=== PATIENT | male | born 1930 | race Caucasian/White ===

== ENCOUNTER 2016-07-18 11:46 | Inpatient (IN) | payer MEDICARE, OTHER ==
[~2016-07-18] VITALS: Ht 172.7 cm; Wt 54.6 kg
[2016-07-18 12:44] LABS: MEAN CORPUSCULAR HGB CONC 31.9 g/dL (31.0-37.0); WHITE BLOOD COUNT 6.73 10^3uL (4.0-11.0)
[2016-07-18 12:47] LABS: BILIRUBIN,URINE Negative (Negative); CLARITY,URINE Clear; COLOR,URINE Yellow; GLUCOSE, URINE (UA) Negative (Negative); LEUKOCYTE ESTERASE ,URINE Negative (Negative); PH,URINE 5.5 (5.0 - 8.0); UROBILINOGEN,URINE 0.2 mg/dL (0.2-1.0)
[2016-07-18 12:57] LABS: ALBUMIN 2.8 g/dL (3.4-5.0); ANION GAP 14.2 MEQ/L (3-15); CALCULATED IONIZED CALCIUM 4.7 mg/dL (3.8-4.6); TOTAL PROTEIN 4.9 g/dL (6.4-8.5)
[2016-07-18 13:08] LABS: MEAN CORPUSCULAR HEMOGLOBIN 31.3 PG (26.0-34.0); MEAN CORPUSCULAR VOLUME 98 FL (80-100)
[2016-07-18 13:10] LABS: PLATELET COUNT 24 10^3uL (150-450)
[2016-07-18 13:11] LABS: TOTAL CELLS COUNTED 0
[2016-07-18 13:24] LABS: URINE CENTRIFUGED VOLUME <10mL Unspun
[2016-07-18 14:43] LABS: ANISOCYTOSIS MODERATE; RBC MORPH SEE REFERENCE (NORMAL)
--- NOTE | 2016-07-18 14:51 | NUR ---
HAS BEEN UP TO THE TOILET IN ROOM TO URINATE. MINIMAL ASSIST WITH LEGS GETTING IN AND OUT OF BED. PT TOLERATED WELL. PT VERBALIZED, "I JUST WANT TO GO BACK HOME".
--- NOTE | 2016-07-18 15:32 | NUR ---
Dr. Linton on phone with Dr. Izaguirre
--- NOTE | 2016-07-18 15:57 | NUR ---
Report given to Ivette WALLER. Questions answered by this RN.
--- NOTE | 2016-07-18 16:10 | NUR ---
JOSELITO Kapoor to take patient to room 309 via wheelchair. Care relinquished.
--- NOTE | 2016-07-18 16:10 | NUR ---
Pt admitted to 309 via w/c accompanied by Roland Morris CNA and family. Skin warm, dry, intact. 1+ pitting edema noted in bilateral ankles. Resprs nonlabored, even on RA. Pt denies SOA, pain, weakness, dizziness. States he is no more SOA than is his baseline. Pt falls asleep frequently during assessment. No IV access at this time.
[2016-07-18 16:15] VITALS: BP 134/63
[2016-07-18] MEDS ORDERED: FUROSEMIDE 100 MG/10 ML (LASIX) VIAL IV ONE (17:30)
[2016-07-18] MEDS ORDERED: ACETAMINOPHEN 325 MG TAB (TYLENOL) PO PRN (17:35)
[2016-07-18] MEDS ORDERED: ONDANSETRON 2 MG/ML (Z0FRAN) 2 ML VIAL IV PRN (17:35)
[2016-07-18] MEDS ORDERED: CALCIUM CARBONATE CHEWABLE 300 MG (TUMS) TABLET PO PRN (17:35)
--- NOTE | 2016-07-18 18:45 | NUR ---
Right PAC accessed using 22g 3/4inch waters needle, using sterile technique. Blood return noted. Flushes without difficulty.
--- NOTE | 2016-07-18 19:29 | NUR ---
Pt resting in bed at this time. PAC hep locked after admin of lasix. Pt encouraged to call for assistance when needing to use RR. Skin warm, dry, intact. Resprs nonlabored, even on RA. Family at bedside. Pt denies needs.
[2016-07-18 19:57] VITALS: BP 144/64
--- NOTE | 2016-07-18 20:20 | NUR ---
Patient states that he would like a giraldo as offered to him by Dr. Izaguirre d/t lasix administration. Order obtained. 14F coude catheter placed under sterile procedure, patient tolerates well. No needs at this time. Will continue to monitor.
[2016-07-18 23:53] VITALS: BP 138/57
[2016-07-19 01:38] LABS: BILIRUBIN,URINE Negative (Negative); CLARITY,URINE Clear; COLOR,URINE Yellow; GLUCOSE, URINE (UA) Negative (Negative); LEUKOCYTE ESTERASE ,URINE Negative (Negative); UROBILINOGEN,URINE 0.2 mg/dL (0.2-1.0)
[2016-07-19 01:47] LABS: URINE CENTRIFUGED VOLUME 12 mL
[2016-07-19 04:12] VITALS: BP 136/50
[2016-07-19] MEDS ORDERED: SODIUM CHLORIDE FLUSH 10 ML ONE ×2 (05:38→09:44)
[2016-07-19 05:56] LABS: BASOPHILS % (AUTO) 0 % (0-2); EOSINOPHILS % (AUTO) 1 % (0-4); LYMPHOCYTES # (AUTO) 0.2 X10^3; MEAN CORPUSCULAR HGB CONC 32.5 g/dL (31.0-37.0); MEAN PLATELET VOLUME 10.9 FL (6.0-9.5); MONOCYTES # (AUTO) 0.3 X10^3; MONOCYTES % (AUTO) 9 % (3-11); NEUTROPHILS # (AUTO) 3.4 X10^3; NEUTROPHILS % (AUTO) 84 % (51-67); WHITE BLOOD COUNT 4.02 10^3uL (4.0-11.0)
[2016-07-19 06:18] LABS: ALBUMIN 2.5 g/dL (3.4-5.0); ANION GAP 11.6 MEQ/L (3-15); CALCULATED IONIZED CALCIUM 4.8 mg/dL (3.8-4.6); TOTAL PROTEIN 4.6 g/dL (6.4-8.5)
[2016-07-19 06:34] LABS: MEAN CORPUSCULAR HEMOGLOBIN 31.8 PG (26.0-34.0); MEAN CORPUSCULAR VOLUME 98 FL (80-100)
[2016-07-19 06:35] LABS: PLATELET COUNT 28 10^3uL (150-450)
--- NOTE | 2016-07-19 06:44 | NUR ---
Patient confused throughout night, attempting to get out of bed throughout night, saying "I need to take a leak!" Reminded frequently about catheter. TABS and Pressure alarm on patient at all times. No needs at this time.
--- NOTE | 2016-07-19 07:15 | NUR ---
Patient sets off tabs alarm during shift report. He is again confused by his catheter and feels he needs to get up and urinate. Attempted to reorient him but this did not help yet. Assisted patient to the chair with the pressure alarm in the seat.
[2016-07-19 08:15] VITALS: BP 116/64
--- NOTE | 2016-07-19 08:18 | NUR ---
Medication reconciliation updated and completed using [facility]'s MAR.
[2016-07-19] MEDS: FUROSEMIDE 100 MG/10 ML (LASIX) VIAL IV SCH ×2 (09:46→16:34)
[2016-07-19 12:00] VITALS: BP 135/49
--- NOTE | 2016-07-19 14:00 | NUR ---
Urine output= 1850cc's for day shift.
[2016-07-19 16:17] VITALS: BP 110/60
[2016-07-19] MEDS: SODIUM CHLORIDE FLUSH 10 ML SYR IV SCH (16:34)
[2016-07-19] MEDS ORDERED: ACETAMINOPHEN 325 MG TAB (TYLENOL) PO PRN (16:50)
[2016-07-19] MEDS ORDERED: meTOprolol TARTRATE 25 MG (LOPRESSOR) TABLET ONE (18:07)
[2016-07-19] MEDS: PANTOPRAZOLE 40 MG (PROTONIX) TAB PO SCH (18:39)
[2016-07-19] MEDS: LOSARTAN 50 MG (COZAAR) TABLET PO SCH (18:39)
[2016-07-19] MEDS: meTOprolol TARTRATE 50 MG (LOPRESSOR) TABLET PO SCH (18:39)
[2016-07-19] MEDS: ALLOPURINOL 300 MG (ZYLOPRIM) TAB PO SCH (18:40)
[2016-07-19] MEDS: THYROID 60 MG PO SCH (18:41)
--- NOTE | 2016-07-19 19:30 | NUR ---
Patient's orientation was much better during the day then it was at night. He is also better mentally when family members are present as they were most of the day. Tabs alarm, bed alarm, and pressure alarm applied for safety. No SOA noted today. Edema is improved in bilateral legs and arms.
[2016-07-19 19:40] VITALS: BP 123/47
--- NOTE | 2016-07-19 20:17 | NUR ---
Patient resting in the recliner with legs elevated. Is alert and oriented at this time. Skin warm and dry. Color pink. Ledt remains sl swollen. Teixeira drains truman urine, large amount in catheter bag. No concerns voiced at this time.
[2016-07-19] MEDS: SIMVASTATIN 5 MG PO SCH (21:00)
[2016-07-19 23:37] VITALS: BP 120/47
--- NOTE | 2016-07-20 | NUR ---
Resting in bed. Tabs and bed alarm on. Patient alert and confused, yet pleasant. No discomforts voiced. Left hand elevated on pillow. Remains ecchymotic looking and swollen. Patient denies pain in hand or arm. Teixeira drains light red tinged urine.
[2016-07-20 04:30] VITALS: BP 122/53
[2016-07-20] MEDS ORDERED: LEVOTHYROXINE 150 MCG (LEVOTHROID) TABLET ONE (05:44)
[2016-07-20] MEDS: THYROID 60 MG PO SCH (05:58)
[2016-07-20] MEDS: PANTOPRAZOLE 40 MG (PROTONIX) TAB PO SCH (06:00)
--- NOTE | 2016-07-20 06:30 | NUR ---
Patient rested well tonight. Tried to get out of bed twice, but when he was re-oriented he would rest back in bed. Confused to place and time. Cooperative. Fluids encouraged. Taken when offered. Tabs alarm on for safety and bed alarm on also.
[2016-07-20 06:32] LABS: BASOPHILS % (AUTO) 0 % (0-2); EOSINOPHILS # (AUTO) 0.1 10^3uL; EOSINOPHILS % (AUTO) 1 % (0-4); LYMPHOCYTES # (AUTO) 0.6 X10^3; MEAN CORPUSCULAR HEMOGLOBIN 31.3 PG (26.0-34.0); MEAN CORPUSCULAR HGB CONC 32.5 g/dL (31.0-37.0); MEAN CORPUSCULAR VOLUME 96 FL (80-100); MEAN PLATELET VOLUME 11.4 FL (6.0-9.5); MONOCYTES # (AUTO) 0.5 X10^3; MONOCYTES % (AUTO) 11 % (3-11); NEUTROPHILS # (AUTO) 3.3 X10^3; NEUTROPHILS % (AUTO) 73 % (51-67); PLATELET COUNT 31 10^3uL (150-450); WHITE BLOOD COUNT 4.48 10^3uL (4.0-11.0)
[2016-07-20 06:50] LABS: ALBUMIN 2.3 g/dL (3.4-5.0); ANION GAP 12.1 MEQ/L (3-15); MAGNESIUM* 1.7 mg/dL (1.6-2.3); PHOSPHORUS 4.8 mg/dL (2.4-4.9); TOTAL PROTEIN 4.2 g/dL (6.4-8.5)
[2016-07-20 09:12] VITALS: BP 125/60
[2016-07-20] MEDS: meTOprolol TARTRATE 50 MG (LOPRESSOR) TABLET PO SCH ×2 (09:15→17:38)
[2016-07-20] MEDS: LOSARTAN 50 MG (COZAAR) TABLET PO SCH (09:15)
[2016-07-20] MEDS: ALLOPURINOL 300 MG (ZYLOPRIM) TAB PO SCH (09:15)
[2016-07-20] MEDS: FUROSEMIDE 100 MG/10 ML (LASIX) VIAL IV SCH ×2 (09:16→17:39)
--- NOTE | 2016-07-20 09:26 | NUR ---
NUTRITION ASSESSMENT Level 1 Patient: Jorje Bella Age/Sex: 86/M Date Screened: 07-20-16 Weight: 118.5#/53.9 kg Height: 68 inches Primary Diagnosis: fluid overload, dyspnea Diet Order: regular Relevant labs: potassium 3.4, glucose 88 Food allergies: N Nutrition Assessment Criteria Age over 80: 4 points Body Mass Index (BMI) under 19: 6 points Admission Screening Indicates Risk? 6 points Moderate/High Risk Diagnosis: N TPN or PPN: N NPO or clear liquid diet: N Serum Glucose <70 or >180: N Hgb A1c >6.7: N/A Total: 16 points Risk Screen: __ Patient at low nutritional risk based on available data; reevaluate in 5-7 days __ Patient at moderate nutritional risk based on available data; reevaluate in 3-5 days _X_ Patient at high nutritional risk; complete Nutrition Assessment within 48 hours of admission.
[2016-07-20 12:04] VITALS: BP 120/47
[2016-07-20] MEDS: POTASSIUM CHLORIDE ER 20 MEQ TABLET PO SCH ×2 (14:18→17:39)
[2016-07-20 15:30] VITALS: BP 106/56
--- NOTE | 2016-07-20 18:38 | NUR ---
Pt resting in bed at this time. PAC hep locked. Pt encouraged to call for assistance. Skin warm, dry, intact. Resprs nonlabored, even on RA. Family at bedside. Teixeira patent to DD; dark truman/reddish, clear urine. Pt denies needs.
--- NOTE | 2016-07-20 19:28 | NUR ---
I visited with Jorje about when he wears his CPAP and if he would like help putting it on at bedtime. He tells me that he does not plan on wearing it tonight because he cant sleep with it on.
[2016-07-20 19:54] VITALS: BP 113/52
[2016-07-20] MEDS: SIMVASTATIN 5 MG PO SCH (21:41)
[2016-07-21 00:34] VITALS: BP 110/45
[2016-07-21 04:54] VITALS: BP 120/47
--- NOTE | 2016-07-21 05:48 | NUR ---
PT has rested well tonight, did have a few incidents of confusion. Did try to get out of bed to empty catheter during this shift x2. Reminded pt that he doesn't have to empty his catheter, that we will do it for him. Assisted back to bed, pt is currently resting in bed asleep. Call light in reach, bed alarm is on, will continue to monitor.
[2016-07-21 06:11] LABS: BASOPHILS % (AUTO) 1 % (0-2); EOSINOPHILS # (AUTO) 0.1 10^3uL; EOSINOPHILS % (AUTO) 2 % (0-4); LYMPHOCYTES # (AUTO) 0.8 X10^3; MEAN CORPUSCULAR HEMOGLOBIN 30.5 PG (26.0-34.0); MEAN CORPUSCULAR HGB CONC 32.3 g/dL (31.0-37.0); MEAN CORPUSCULAR VOLUME 94 FL (80-100); MEAN PLATELET VOLUME 10.9 FL (6.0-9.5); MONOCYTES # (AUTO) 0.6 X10^3; MONOCYTES % (AUTO) 9 % (3-11); NEUTROPHILS # (AUTO) 4.9 X10^3; NEUTROPHILS % (AUTO) 76 % (51-67); PLATELET COUNT 40 10^3uL (150-450); WHITE BLOOD COUNT 6.42 10^3uL (4.0-11.0)
[2016-07-21 06:39] LABS: ALBUMIN 2.9 g/dL (3.4-5.0); MAGNESIUM* 1.5 mg/dL (1.6-2.3); PHOSPHORUS 4.5 mg/dL (2.4-4.9)
[2016-07-21] MEDS: THYROID 60 MG PO SCH (06:40)
[2016-07-21] MEDS: PANTOPRAZOLE 40 MG (PROTONIX) TAB PO SCH (06:41)
[2016-07-21] MEDS: POTASSIUM CHLORIDE ER 20 MEQ TABLET PO SCH ×3 (07:29→18:44)
[2016-07-21] MEDS: meTOprolol TARTRATE 50 MG (LOPRESSOR) TABLET PO SCH ×2 (07:31→07:46)
[2016-07-21] MEDS: FUROSEMIDE 100 MG/10 ML (LASIX) VIAL IV SCH ×3 (07:32→17:07)
[2016-07-21] MEDS: LOSARTAN 50 MG (COZAAR) TABLET PO SCH (07:33)
[2016-07-21] MEDS: ALLOPURINOL 300 MG (ZYLOPRIM) TAB PO SCH (07:45)
[2016-07-21 07:50] VITALS: BP 125/46
--- NOTE | 2016-07-21 11:32 | NUR ---
NUTRITION ASSESSMENT Level II Patient: Jorje Bella Age/Sex: 86/M Date Assessed: 07-21-16 ASSESSMENT Pertinent History: Patient admitted with fluid overload/dyspnea and screened at high nutritional risk secondary to low BMI, elderly age, and recent hospitalization with UGI bleed. PMHx includes Non-Hodgkins lymphoma, prostate cancer, a fib, pulmonary HTN, gout, osteoarthritis, thyroid cancer and hypothyroidism. Pt. has been diuresing since admission due to fluid overload, but weights are inconsistent: 114.4# on admission, then 147#, then 139#, and today 125#. At his most recent admission, he weighed 128.9# on 07-06-16. He has been at the [facility] since that DC. Meds/Nutrition: Thyroid, Protonix, Lasix Weight: 125.4#/57 kg Height: 68 inches Body Mass Index (BMI): 19.1 [place] Body Weight : 154#/70 kg % IBW: 81% GASTROINTESTINAL Appetite: improving--eating 75-100% the past 2 days Diet Order: regular Unintentional loss of >10 lbs. in 3 months: unsure--depends on which documented weight is correct Difficult to chew/swallow: N Diabetes: N Relevant Labs: potassium 3.4, glucose 94, magnesium 1.5 Calculations for Nutritional Assessment Estimated calorie needs: 28-30 kcals/kg = 1,600-1,710 kcals Estimated protein needs: 1.3-1.5 g/kg = 74-85 g./day DIAGNOSIS 1. Nutrition Diagnosis: Potential for inadequate intake related to recurrent illness/dyspnea as evidenced by BMI on the low end of normal with possible weight loss in the past 2 weeks and recurrent hospitalization as an independent risk factor for poor nutritional status. NUTRITIONAL INTERVENTION Goal: Patient will receive adequate nutrition to meet his needs. Plan: Will provide regular diet as ordered and monitor intake for adequacy. MONITORING & EVALUATION _X_ Monitor patients menu selections _X_ Monitor patients food intake per nursing notes __ Monitor NPO/clear liquid days __ Monitor lab values __ Monitor I&O _X_ Other--request accurate daily weights from nursing for an accurate nutrition assessment
[2016-07-21 15:30] VITALS: BP 115/55
[2016-07-21] MEDS: MAGNESIUM 1 GM/100 ML IVPB 100 ML IV SCH ×2 (16:02→17:10)
[2016-07-21] MEDS: SODIUM CHLORIDE FLUSH 10 ML SYR IV SCH ×2 (16:03→17:11)
[2016-07-21] MEDS: meTOprolol TARTRATE 25 MG (LOPRESSOR) TABLET PO SCH (18:44)
--- NOTE | 2016-07-21 19:11 | NUR ---
The patient is up in bed for assessment and interventions. He is cooperative and compliant able to make needs known. Respirations are even and unlabored skin is clean and dry. Catheter in place with clear yellow UO. Patient is up with SBA and walker to tend to hygiene this AM. He returns to rest in bed afterwards. Family in to see the patient this afternoon and Jorje is up to chair. He remains cooperative and plan to diuresis continues. Electrolyte replacement ordered this afternoon. Currently the patient is up in chair watching television. Report given to Arline WALLER and care relinquished.
--- NOTE | 2016-07-21 19:15 | NUR ---
Report received, care assumed. Pt sitting up in chair.
[2016-07-21 20:25] VITALS: BP 96/38
[2016-07-21] MEDS: SIMVASTATIN 5 MG PO SCH (20:31)
--- NOTE | 2016-07-21 20:35 | NUR ---
Pt took evening meds without difficulty. Assisted pt to bed with walker. Pt transferred well. Needed some instruction. Pt denies other needs. Call light in reach, side rails up times two, H2O in reach, tab alarm on.
--- NOTE | 2016-07-21 20:52 | NUR ---
Pt does not have his home CPAP here and has no desire to wear one at night.
[2016-07-21] MEDS ORDERED: POTASSIUM CHLORIDE ER 20 MEQ TABLET PO SCH (21:00)
--- NOTE | 2016-07-22 | NUR ---
Appears to be sleeping. No signs discomfort. No needs at this time. Call light in reach.
[2016-07-22 00:21] VITALS: BP 92/58
[2016-07-22 04:00] VITALS: BP 112/58
--- NOTE | 2016-07-22 05:30 | NUR ---
Pt has been sleeping well. NO reports of discomfort tonight. No needs at this time. Call light in reach.
[2016-07-22] MEDS: PANTOPRAZOLE 40 MG (PROTONIX) TAB PO SCH (06:08)
[2016-07-22] MEDS: THYROID 60 MG PO SCH (06:08)
--- NOTE | 2016-07-22 06:19 | NUR ---
Pt took AM meds without difficulty. Reports sleeping well. No other needs. Wants to go back to sleep.
[2016-07-22 06:28] LABS: BASOPHILS % (AUTO) 1 % (0-2); EOSINOPHILS # (AUTO) 0.1 10^3uL; EOSINOPHILS % (AUTO) 2 % (0-4); LYMPHOCYTES # (AUTO) 0.8 X10^3; MEAN CORPUSCULAR HEMOGLOBIN 30.9 PG (26.0-34.0); MEAN CORPUSCULAR HGB CONC 32.5 g/dL (31.0-37.0); MEAN CORPUSCULAR VOLUME 95 FL (80-100); MEAN PLATELET VOLUME 11.6 FL (6.0-9.5); MONOCYTES # (AUTO) 0.6 X10^3; MONOCYTES % (AUTO) 10 % (3-11); NEUTROPHILS # (AUTO) 4.2 X10^3; NEUTROPHILS % (AUTO) 73 % (51-67); PLATELET COUNT 44 10^3uL (150-450); WHITE BLOOD COUNT 5.78 10^3uL (4.0-11.0)
[2016-07-22 06:49] LABS: ALBUMIN 2.8 g/dL (3.4-5.0); ANION GAP 12.2 MEQ/L (3-15); PHOSPHORUS 3.4 mg/dL (2.4-4.9)
[2016-07-22 07:45] VITALS: BP 134/47
--- NOTE | 2016-07-22 08:00 | NUR ---
Pt denies any pain this morning. Reports he slept well. Denies any needs. Assessment completed. Pt encouraged to call if he needs anything.
[2016-07-22] MEDS: POTASSIUM CHLORIDE ER 20 MEQ TABLET PO SCH ×3 (08:40→17:25)
[2016-07-22] MEDS: meTOprolol TARTRATE 25 MG (LOPRESSOR) TABLET PO SCH ×2 (08:40→17:25)
[2016-07-22] MEDS: LOSARTAN 50 MG (COZAAR) TABLET PO SCH (08:41)
[2016-07-22] MEDS: ALLOPURINOL 300 MG (ZYLOPRIM) TAB PO SCH (08:41)
[2016-07-22] MEDS: FUROSEMIDE 100 MG/10 ML (LASIX) VIAL IV SCH ×2 (08:41→17:25)
[2016-07-22 11:48] VITALS: BP 113/48
[2016-07-22 16:00] VITALS: BP 111/55
[2016-07-22] MEDS: SODIUM CHLORIDE FLUSH 10 ML SYR IV SCH (17:25)
--- NOTE | 2016-07-22 20:07 | NUR ---
Pt does not have his home CPAP here, has no desires to wear it and has no needs at this time.
--- NOTE | 2016-07-22 20:08 | NUR ---
Pt worked with PT today. Denies any pain or needs at this time. IV lasix given bid. Pt tolerated well. Port flushes well with good blood return. Report given to Gerber Robb RN at 1900.
[2016-07-22 20:38] VITALS: BP 100/43
[2016-07-22] MEDS: SIMVASTATIN 5 MG PO SCH (22:10)
[2016-07-23 00:30] VITALS: BP 122/56
[2016-07-23 04:15] VITALS: BP 106/41
[2016-07-23 06:46] LABS: ALBUMIN 2.9 g/dL (3.4-5.0); ANION GAP 12.2 MEQ/L (3-15); MAGNESIUM* 1.9 mg/dL (1.6-2.3); PHOSPHORUS 3.8 mg/dL (2.4-4.9)
[2016-07-23 06:49] LABS: BASOPHILS % (AUTO) 1 % (0-2); EOSINOPHILS # (AUTO) 0.1 10^3uL; EOSINOPHILS % (AUTO) 2 % (0-4); LYMPHOCYTES # (AUTO) 0.9 X10^3; MEAN CORPUSCULAR HEMOGLOBIN 30.9 PG (26.0-34.0); MEAN CORPUSCULAR HGB CONC 32.8 g/dL (31.0-37.0); MEAN CORPUSCULAR VOLUME 94 FL (80-100); MEAN PLATELET VOLUME 11.6 FL (6.0-9.5); MONOCYTES # (AUTO) 0.6 X10^3; MONOCYTES % (AUTO) 11 % (3-11); NEUTROPHILS # (AUTO) 3.9 X10^3; NEUTROPHILS % (AUTO) 70 % (51-67); PLATELET COUNT 52 10^3uL (150-450); WHITE BLOOD COUNT 5.54 10^3uL (4.0-11.0)
[2016-07-23] MEDS: PANTOPRAZOLE 40 MG (PROTONIX) TAB PO SCH (07:22)
[2016-07-23] MEDS: THYROID 60 MG PO SCH (07:27)
--- NOTE | 2016-07-23 07:28 | NUR ---
Patient had difficulty getting to sleep last nigh, but once asleep, appeared to sleep well. His only complaint was not being able to fall asleep.
[2016-07-23] MEDS: ALLOPURINOL 300 MG (ZYLOPRIM) TAB PO SCH (08:31)
[2016-07-23] MEDS: POTASSIUM CHLORIDE ER 20 MEQ TABLET PO SCH ×3 (08:31→17:18)
[2016-07-23] MEDS: LOSARTAN 50 MG (COZAAR) TABLET PO SCH (08:31)
[2016-07-23] MEDS: meTOprolol TARTRATE 25 MG (LOPRESSOR) TABLET PO SCH ×2 (08:31→17:18)
[2016-07-23] MEDS: FUROSEMIDE 20 MG (LASIX) TAB PO SCH ×2 (08:32→15:04)
--- NOTE | 2016-07-23 08:37 | NUR ---
Up to chair with one assist and walker for breakfast. Tolerated well. Denies any pain or nausea. Took am pills well. Denies any other needs at this time.
[2016-07-23 08:40] VITALS: BP 99/45
[2016-07-23 12:00] VITALS: BP 122/56
--- NOTE | 2016-07-23 15:16 | NUR ---
Resting in bed, denies any needs at this time. Denies pain.
[2016-07-23 15:43] VITALS: BP 112/44
--- NOTE | 2016-07-23 16:00 | NUR ---
Pt requested I call his and let her know the plan is for him to return to [facility] tomorrow for skilled care. pt also asked for his to bring him some clothes tomorrow. verbalizes understanding and denies questions. Pt walking halls with Physical Therapy at this time. Tolerating well.
--- NOTE | 2016-07-23 16:52 | NUR ---
Pt up to bathroom, 1st void since giraldo catheter removed and BM.
--- NOTE | 2016-07-23 17:43 | NUR ---
Pt up to chair for supper at this time. Denies any pain or needs.
--- NOTE | 2016-07-23 19:12 | NUR ---
Report given to Luma Murray RN at this time.
--- NOTE | 2016-07-23 20:00 | NUR ---
Patient rests in recliner chair with legs elevated. Skin warm and dry. Color pale. Voiding without difficulty, since catheter removed earlier today. No discomforts voiced.
[2016-07-23 20:09] VITALS: BP 104/43
[2016-07-23] MEDS: SIMVASTATIN 5 MG PO SCH (21:01)
--- NOTE | 2016-07-24 | NUR ---
Ambulates to the bathroom using walker. Does not call light. Bed alarm on for safety.
[2016-07-24 00:37] VITALS: BP 120/38
[2016-07-24 04:04] VITALS: BP 109/49
[2016-07-24] MEDS: THYROID 60 MG PO SCH (06:26)
[2016-07-24] MEDS: PANTOPRAZOLE 40 MG (PROTONIX) TAB PO SCH (06:26)
--- NOTE | 2016-07-24 06:30 | NUR ---
Rested at short intervals tonight. Voided several times without difficulty. Denies any discomforts at this time.
[2016-07-24 06:31] LABS: BASOPHILS % (AUTO) 2 % (0-2); EOSINOPHILS # (AUTO) 0.2 10^3uL; EOSINOPHILS % (AUTO) 3 % (0-4); MEAN CORPUSCULAR HEMOGLOBIN 31.2 PG (26.0-34.0); MEAN CORPUSCULAR VOLUME 95 FL (80-100); MEAN PLATELET VOLUME 10.8 FL (6.0-9.5); MONOCYTES # (AUTO) 0.7 X10^3; MONOCYTES % (AUTO) 12 % (3-11); NEUTROPHILS # (AUTO) 3.2 X10^3; NEUTROPHILS % (AUTO) 60 % (51-67); PLATELET COUNT 67 10^3uL (150-450); WHITE BLOOD COUNT 5.39 10^3uL (4.0-11.0)
[2016-07-24 06:36] LABS: ALBUMIN 3.1 g/dL (3.4-5.0); ANION GAP 13.1 MEQ/L (3-15); PHOSPHORUS 3.5 mg/dL (2.4-4.9)
[2016-07-24 08:19] VITALS: BP 112/64
[2016-07-24] MEDS: meTOprolol TARTRATE 25 MG (LOPRESSOR) TABLET PO SCH (08:39)
[2016-07-24] MEDS: POTASSIUM CHLORIDE ER 20 MEQ TABLET PO SCH (08:39)
[2016-07-24] MEDS: LOSARTAN 50 MG (COZAAR) TABLET PO SCH (08:39)
[2016-07-24] MEDS: ALLOPURINOL 300 MG (ZYLOPRIM) TAB PO SCH (08:40)
[2016-07-24] MEDS: FUROSEMIDE 20 MG (LASIX) TAB PO SCH (08:40)
--- NOTE | 2016-07-24 10:20 | NUR ---
Pt. has been accepted back to [facility] for skilled care. Pt. will be discharged today back to building 801/ext. 311.
--- NOTE | 2016-07-24 11:38 | NUR ---
Discharge order received. Right sided port-a-cath de-accessed. No redness or swelling at insertion site. Report called to Latricia Luu 801 nurse.
--- NOTE | 2016-07-24 11:50 | NUR ---
Patient dismissed to [employer] transportation van accompanied by JOSELITO and Yan.
== END 2016-07-24 11:52 | disposition home or self-care (01) | DRG 292 ==
LOC: ED 11:48 → MED/SURG 15:49 → INTOOBSV 07-19 12:24 → OBSVTOIN 07-19 12:24 → UNDODISIN 07-24 11:52
PROVIDERS: ADMIT Family Medicine; ATTEND Family Medicine
DX: I11.0 Hypertensive heart disease with heart failure (principal); D62 Acute posthemorrhagic anemia; I50.31 Acute diastolic (congestive) heart failure; D58.0 Hereditary spherocytosis; I48.91 Unspecified atrial fibrillation; C61 Malignant neoplasm of prostate; E03.9 Hypothyroidism, unspecified; G47.33 Obstructive sleep apnea (adult) (pediatric); I27.2 Other secondary pulmonary hypertension; Z95.0 Presence of cardiac pacemaker; Z87.19 Personal history of other diseases of the digestive system; Z85.72 Personal history of non-Hodgkin lymphomas
CPT/HCPCS: 36415; 71010; 71020; 80053; 80069; 81003; 81015; 83735; 83880; 84100; 85025; 85379; 85610; 87486; 87581; 87633; 87798; 99282; 99283

== ENCOUNTER → 2016-08-11 | Outpatient (REF) | payer MEDICARE, OTHER ==
[2016-08-11 17:08] LABS: MEAN CORPUSCULAR HGB CONC 33.2 g/dL (31.0-37.0); MEAN CORPUSCULAR VOLUME 97 FL (80-100); PLATELET COUNT 38 10^3uL (150-450)
[2016-08-11 17:29] LABS: MEAN CORPUSCULAR HEMOGLOBIN 32.3 PG (26.0-34.0)
[2016-08-11 17:37] LABS: BAND NEUTROPHILS % 3 % (0-6); SEGMENTED NEUTROPHILS % 79 % (51-67)
[2016-08-11 17:38] LABS: ANISOCYTOSIS SLIGHT; EOSINOPHILS % 3 % (0-4); LYMPHOCYTES # 0.9 #; MONOCYTES # 0.2 #; MONOCYTES % 3 % (3-11); POLYCHROMASIA SLIGHT; RBC MORPH SEE REFERENCE (NORMAL); TOTAL CELLS COUNTED 100
== END ==
LOC: LAB 16:26
PROVIDERS: ATTEND Family Medicine
DX: D64.9 Anemia, unspecified (principal)
CPT/HCPCS: 85007; 85027

== ENCOUNTER 2016-08-24 14:29 | Emergency (ER) | payer MEDICARE, OTHER ==
[~2016-08-24] VITALS: Ht 172.7 cm; Wt 63.8 kg
[2016-08-24 15:58] LABS: BASOPHILS % (AUTO) 1 % (0-2); EOSINOPHILS # (AUTO) 0.1 10^3uL; EOSINOPHILS % (AUTO) 1 % (0-4); MEAN CORPUSCULAR HGB CONC 33.3 g/dL (31.0-37.0); MEAN CORPUSCULAR VOLUME 96 FL (80-100); MEAN PLATELET VOLUME 9.8 FL (6.0-9.5); MONOCYTES # (AUTO) 0.9 X10^3; MONOCYTES % (AUTO) 9 % (3-11); NEUTROPHILS # (AUTO) 7.3 X10^3; NEUTROPHILS % (AUTO) 77 % (51-67); PLATELET COUNT 54 10^3uL (150-450); WHITE BLOOD COUNT 9.44 10^3uL (4.0-11.0)
[2016-08-24 16:00] LABS: ALBUMIN 3.5 g/dL (3.4-5.0); ANION GAP 16.3 MEQ/L (3-15); CALCULATED IONIZED CALCIUM 3.6 mg/dL (3.8-4.6); TOTAL PROTEIN 6.3 g/dL (6.4-8.5)
[2016-08-24 16:39] LABS: ERYTHROCYTE SEDIMENTATION RT* 11 mm/hr (0-19); MEAN CORPUSCULAR HEMOGLOBIN 32.1 PG (26.0-34.0)
[2016-08-24 18:01] VITALS: BP 112/52
== END 2016-08-24 17:32 | disposition home or self-care (01) ==
LOC: ED 14:31
DX: I50.9 Heart failure, unspecified (principal); I27.2 Other secondary pulmonary hypertension; R60.9 Edema, unspecified
CPT/HCPCS: 36415; 70450; 71020; 80053; 83880; 85025; 85652; 86140; 99283; 99284

== ENCOUNTER 2016-10-22 09:12 | Outpatient (RCR) | payer MEDICARE, OTHER ==
[2016-10-22] VITALS (7 sets, daily range): BP systolic 113–166; BP diastolic 25–52
[~2016-10-22 09:12] MED LIST: ACET325T38 PO; ALLO300T2 PO; APIX5TAB PO; CALC500T55 PO; COLC0.6T7 PO; FRSM20T PO; FURO20TA4 PO; INDO50CA PO; LOPE2CAP PO; LSRT50T PO; MTP50T PO; MULT-955 PO; PANT40TA3 PO; PRAV10TA PO; THYR60TA4 PO
[2016-10-22] MEDS ORDERED: NS IV 500 ML 500 ML ONE (13:07)
--- NOTE | 2016-10-22 14:15 | NUR ---
1 unit Packed red blood cells unit #[id number] was started. Pretransfusion vitals were recorded on the computer.
[2016-10-22] MEDS ORDERED: SODIUM CHLORIDE FLUSH 10 ML SYR IV PRN (14:25)
[2016-10-22] MEDS ORDERED: SODIUM CHLORIDE FLUSH 3 ML SYR IV PRN (14:25)
--- NOTE | 2016-10-22 14:25 | NUR ---
Vital signs as blood reaches patient- pulse 78, blood pressure 113/28, [id number], temp97.1 temperal. patient is A&O.
[2016-10-22] MEDS ORDERED: NS IV 500 ML 500 ML IV SCH (14:30)
--- NOTE | 2016-10-22 14:30 | NUR ---
Pulse 76, blood pressure 106/30, resper 23, temp 97.0 temperal.
--- NOTE | 2016-10-22 14:35 | NUR ---
pulse 78, blood pressure 111/41, repers 23, temp 97.2 temperal.
--- NOTE | 2016-10-22 14:40 | NUR ---
pulse 77, blood pressure 118/39, respers 23, temperature 97.2 temperal.
--- NOTE | 2016-10-22 15:00 | NUR ---
Patient is resting in the recliner with eyes closed. Pulse is 80, [id number], blood pressure 121/25, temp 97.2 temperal.
--- NOTE | 2016-10-22 15:45 | NUR ---
Pulse 81, respers 24, blood pressure 129/37, temp 97.1.
--- NOTE | 2016-10-22 16:45 | NUR ---
Patient continues to rest in recliner with eyes closed. Pulse 79, resper 22, blood [id number], temp 97.2
--- NOTE | 2016-10-22 17:45 | NUR ---
Blood completed. 317 ml received in tranfusion . Pulse77, resper 24, blood pressure 147/37, temp 97.4. Patient has no complaints or needs.
--- NOTE | 2016-10-22 18:05 | NUR ---
Post transfusion vital signs pulse 76, blood pressure 166/ 52. 50 mls of NS given post blood.
--- NOTE | 2016-10-22 18:10 | NUR ---
Lissa cath flushed with 5 ml of normal saline and locked with 3 ml of Heparin. 22 alvaro waters needle removed and small telfa dressing placed to right upper chest. Patient left ICU under his own power with spouse at his side. Patient was alert and oriented x3.
== END 2016-12-16 18:23 | disposition home or self-care (01) ==
LOC: EUOP 09:12 → ICU 12:49 → EUOP 12-16 18:23
PROVIDERS: ATTEND Family Medicine
DX: D64.9 Anemia, unspecified (principal)
CPT/HCPCS: 36415; 36430; 85014; 85018; 86850; 86900; 86901; 86920; P9016